=== PATIENT | male | born 1975 | race Caucasian/White ===

== ENCOUNTER 2022-10-06 18:50 | Emergency (ER) | payer MEDICAID ==
[~2022-10-06] VITALS: Ht 182.9 cm; Wt 111.1 kg
[2022-10-06 19:15] VITALS: BP_SYST 126
--- NOTE | 2022-10-06 19:21 | NUR ---
Patient to ER bed 8 to gown for evaluation. Side rails up. Report given to SILVANA.
--- NOTE | 2022-10-06 19:30 | NUR ---
ER Dr.DELA ANN at bedside examining patient.
[2022-10-06] MEDS ORDERED: MORPHINE 4 MG INJ. 4 MG/ML VIAL IM ONE ×2 (19:45→20:45)
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
[2022-10-06] MEDS ORDERED: OXYC-128 PO (20:43)
[2022-10-06] MEDS ORDERED: IBUP-1969 PO (20:43)
[2022-10-06] MEDS ORDERED: ONDA-8 TL (20:43)
[2022-10-06] MEDS ORDERED: ONDANSETRON HCL 4 MG/2 ML VIAL IVP ONE (20:45)
[2022-10-06] MEDS ORDERED: MORPHINE 4 MG INJ. 4 MG/ML VIAL IVP ONE (20:45)
[2022-10-06 21:04] VITALS: BP_SYST 126
--- NOTE | 2022-10-06 21:06 | NUR ---
Patient given written and verbal discharge instructions and verbalizes understanding. ER MD discussed with patient the results and treatment provided. Patient in stable condition. ID arm band removed. Rx of ZOFRAN, IBUPROFEN, PERCOCET given. Patient educated on pain management and to follow up with PMD. Pain Scale . Opportunity for questions provided and answered. Medication side effect fact sheet provided.
== END 2022-10-06 21:03 | disposition home or self-care (01) ==
LOC: SED 18:50
DX: S02.651A Fracture of angle of right mandible, initial encounter for closed fracture (principal); Z79.899 Other long term (current) drug therapy; W22.8XXA Striking against or struck by other objects, initial encounter; Y93.89 Activity, other specified; Y92.89 Other specified places as the place of occurrence of the external cause; Y99.8 Other external cause status
CPT/HCPCS: 99285; 70450; 70486; 76376; 96372; J2270; 99284

== ENCOUNTER 2023-05-13 09:28 | Emergency (ER) | payer MEDICAID ==
[~2023-05-13] VITALS: Ht 182.9 cm; Wt 115.2 kg
[~2023-05-13 09:28] MED LIST: IBUP-1969 PO; ONDA-8 TL; OXYC-128 PO
[2023-05-13 09:44] VITALS: BP_SYST 130; PULSE 78; RESP 22; TEMP 98.3; O2SAT 96
== END 2023-05-13 10:22 | disposition left against medical advice (07) ==
LOC: SED 09:28
DX: J34.89 Other specified disorders of nose and nasal sinuses (principal); Z53.21 Procedure and treatment not carried out due to patient leaving prior to being seen by health care provider
CPT/HCPCS: 99281